=== PATIENT | male | born 1945 | race Caucasian/White ===

== ENCOUNTER 2017-06-18 05:40 | Inpatient (IN) | payer OTHER ==
[~2017-06-18] VITALS: Ht 177.8 cm; Wt 107.6 kg
[2017-06-18 06:53] LABS: ADD MIUA? YES; BILIRUBIN NEGATIVE; BLOOD SMALL; COLOR STRAW ((YELLOW)); GLUCOSE (STRIP) >=500; KETONES NEGATIVE; LEUKOCYTES NEGATIVE; NITRITE NEGATIVE; PROTEIN (STRIP) NEGATIVE; SPECIFIC GRAVITY 1.028 (1.000-1.030); UROBILINOGEN 0.2 MG/DL (0.2-1.0)
[2017-06-18 06:55] LABS: CHLORIDE 92 mEq/L (99-109); SODIUM 127 mEq/L (136-147)
[2017-06-18 06:56] LABS: BACTERIA NONE SEEN /HPF; EPITHELIAL CELLS NONE SEEN /HPF; MUCUS TRACE /LPF; RED BLOOD CELLS 0-5 /HPF (0-5); UCUL ADDED? NO; WHITE BLOOD CELLS 0-5 /HPF (0-5)
[2017-06-18 06:58] LABS: ANION GAP 13 MEQ/L (2-14)
[2017-06-18 06:59] LABS: TOTAL BILIRUBIN 1.3 mg/dL (0.0-1.0)
[2017-06-18 07:00] LABS: ALKALINE PHOSPHATASE 162 IU/L (3-129)
[2017-06-18 07:01] LABS: GFR ESTIMATE (CALCULATED) > 59 mL/min/
[2017-06-18 07:02] LABS: UREA NITROGEN (BUN) 20 mg/dL (9-23)
[2017-06-18 07:08] LABS: GLUCOSE 760 mg/dL (70-99)
[2017-06-18 07:36] LABS: TROP-I INTERPRETATION NEGATIVE; TROPONIN-I < 0.01 ng/mL (0.0-0.30)
[2017-06-18 07:59] LABS: SAMPLE HEMOLYSIS CHECK 0; SAMPLE ICTERIC CHECK 0; SAMPLE LIPEMIA CHECK 0
[2017-06-18 08:06] LABS: CARBON DIOXIDE (BICARBONATE) 29.2 MEQ/L (20-31)
[2017-06-18 10:07] LABS: HDL CHOLESTEROL 42 MG/DL (Desirable>=40); LDL CHOLESTEROL 148 mg/dL (Desirable<100); NON-HDL CHOLESTEROL 182 mg/dL (Desirable<160); TOTAL CHOLESTEROL 224 mg/dL (Desirable<200); TRIGLYCERIDES 170 MG/DL (Normal: <150)
[2017-06-18] MEDS ORDERED: ASPIR 8181 M1 PO (10:29)
[2017-06-18] MEDS ORDERED: FISH OIL 1,0001 EA10 PO (10:30)
[2017-06-18 10:34] LABS: Estimated Average Glucose 326 mg/dL (70-123)
[2017-06-18 14:03] LABS: POINT-OF-CARE METER ID UU13113717
[2017-06-18 14:12] LABS: CHLORIDE 101 mEq/L (99-109); POTASSIUM 4.3 mEq/L (3.7-5.4)
[2017-06-18 14:16] LABS: ANION GAP 10 MEQ/L (2-14)
[2017-06-18 14:18] LABS: GFR ESTIMATE (CALCULATED) > 59 mL/min/
[2017-06-18 14:19] LABS: UREA NITROGEN (BUN) 18 mg/dL (9-23)
[2017-06-18 14:22] LABS: GLUCOSE 472 mg/dL (70-99)
[2017-06-18 14:23] LABS: SODIUM 135 mEq/L (136-147)
[2017-06-18 15:56] VITALS: BP 110/56
[2017-06-18 18:03] LABS: POINT-OF-CARE METER ID UU13113717
[2017-06-18 19:47] VITALS: BP 113/63
[2017-06-18 21:30] LABS: POINT-OF-CARE METER ID UU13113717
[2017-06-18 23:33] VITALS: BP 135/60
[2017-06-19 04:18] VITALS: BP 125/58
[2017-06-19 07:12] LABS: HEMATOCRIT 36.1 % (38.0-50.0); MCH 30.5 PG (29.0-34.0); MCHC 32.4 G/DL (30.0-36.0); MCV 94.3 FL (86-99); MEAN PLAT.VOLUME 13.2 uM^3 (9.0-12.4); PLATELET COUNT 63 K/uL (156-360); RBC DIS.WIDTH-CV 14.3 % (11.8-14.6); RBC DIS.WIDTH-SD 49.8 % (39-53); RED BLOOD COUNT 3.83 M/uL (4.00-5.50); WHITE BLOOD COUNT 5.2 K/uL (4.1-10.2)
[2017-06-19 07:35] LABS: ALKALINE PHOSPHATASE 118 IU/L (3-129); DIRECT BILIRUBIN 0.6 mg/dL (0.0-0.3); TOTAL BILIRUBIN 1.7 MG/DL (0.0-1.0)
[2017-06-19 08:41] VITALS: BP 139/66
[2017-06-19] MEDS ORDERED: PRAVASTATIN SOD40 MG PO (11:23)
[2017-06-19] MEDS ORDERED: LISINOPRIL10 MG PO (11:23)
[2017-06-19] MEDS ORDERED: GLUCOMETER MC (11:28)
[2017-06-19] MEDS ORDERED: 1ST TIER UNILE1 EAC1 MC (11:29)
[2017-06-19] MEDS ORDERED: TEST STRIPS MC (11:29)
[2017-06-19 11:33] VITALS: BP 108/55
[2017-06-19 11:56] LABS: POINT-OF-CARE METER ID UU14188625
[2017-06-19 11:59] LABS: POINT-OF-CARE METER ID UU13113747
[2017-06-19 11:59] LABS: POINT-OF-CARE METER ID UU13113747
[2017-06-19 15:31] VITALS: BP 106/54
[2017-06-19 15:59] LABS: GLUCOSE 422 mg/dL (70-99)
[2017-06-19 17:12] LABS: POINT-OF-CARE METER ID UU14188625
[2017-06-19 18:25] VITALS: BP 100/49
[2017-06-19 21:44] LABS: POINT-OF-CARE METER ID UU13113717
[2017-06-19 23:23] VITALS: BP 117/59
[2017-06-20 03:43] VITALS: BP 95/45
[2017-06-20 07:43] LABS: POINT-OF-CARE METER ID UU13113717
[2017-06-20 07:56] VITALS: BP 127/58
[2017-06-20] MEDS ORDERED: LEVEMIR100 UNIT/2 SC (09:37)
[2017-06-20] MEDS ORDERED: INSULIN SYRING1 EA53 MC (09:44)
[2017-06-20] MEDS ORDERED: NOVOLIN,HU100 UNITS1 SC (09:44)
[2017-06-20] MEDS ORDERED: [UNRECOGNIZED DRUG - SUPPLY] MC (09:44)
[2017-06-20 12:18] VITALS: BP 139/65
[2017-06-20 15:57] VITALS: BP 105/51
== END 2017-06-20 15:57 | disposition home health service (06) | DRG 638 ==
LOC: EME 05:40 → EDOF 08:40 → ENRESERV 08:53 → CANRESERV 12:37 → ENRESERV 12:37 → 5SOUTH 14:18
PROVIDERS: Internal Medicine; Physician Assistant
DX: E11.65 Type 2 diabetes mellitus with hyperglycemia (principal); D69.6 Thrombocytopenia, unspecified; Z68.34 Body mass index [BMI] 34.0-34.9, adult; E87.1 Hypo-osmolality and hyponatremia; I10 Essential (primary) hypertension; E78.5 Hyperlipidemia, unspecified; D64.9 Anemia, unspecified; E66.3 Overweight; Z87.891 Personal history of nicotine dependence; J40 Bronchitis, not specified as acute or chronic; K70.10 Alcoholic hepatitis without ascites
CPT/HCPCS: 70450; 71020; 80048; 80048 91; 80053; 80061; 80076; 81003; 82010; 82803; 82948; 83036; 83930; 84300; 84484; 84999; 85025; 85027; 90686; 93005; 93880; 99281; 99285; G0378; J1815; J7030

== ENCOUNTER 2017-08-15 17:40 | Inpatient (IN) | payer OTHER ==
[~2017-08-15] VITALS: Ht 177.8 cm; Wt 110.0 kg
[~2017-08-15 17:40] MED LIST: 1ST TIER UNILE1 EAC1 MC; ASPIR 8181 M1 PO; FISH OIL 1,0001 EA10 PO; GLUCOMETER MC; INSULIN SYRING1 EA53 MC; LEVEMIR100 UNIT/2 SC; LISINOPRIL10 MG PO; NOVOLIN,HU100 UNITS1 SC; PRAVASTATIN SOD40 MG PO; TEST STRIPS MC; [UNRECOGNIZED DRUG - SUPPLY] MC
[2017-08-15 18:45] LABS: EOSINOPHIL (%) 3.9 % (0-5); EOSINOPHIL COUNT 0.1 K/uL (0-0.3); HEMATOCRIT 30.7 % (38.0-50.0); IMMATURE GRANULOCYTE (%) 0.3 % (0.0-0.7); INSTRUMENT ABS NEUTROPHIL CT 2.2 K/uL; LYMPHOCYTE COUNT 0.7 K/uL (1.0-2.8); MCH 31.3 PG (29.0-34.0); MCHC 32.9 G/DL (30.0-36.0); MEAN PLAT.VOLUME 11.4 uM^3 (9.0-12.4); MONOCYTE (%) 9.3 % (3-12); MONOCYTE COUNT 0.3 K/uL (0-0.8); NEUTROPHIL COUNT 2.2 K/uL (1.8-6.4); PLATELET COUNT 80 K/uL (156-360); RBC DIS.WIDTH-CV 15.2 % (11.8-14.6); RBC DIS.WIDTH-SD 53.1 % (39-53); RED BLOOD COUNT 3.23 M/uL (4.00-5.50); WHITE BLOOD COUNT 3.3 K/uL (4.1-10.2)
[2017-08-15 18:53] LABS: INTER. NORMALIZED RATIO 1.2; PROTHROMBIN TIME 13.8 SEC (10.2-12.9)
[2017-08-15 18:54] LABS: CHLORIDE 110 mEq/L (99-109); SODIUM 139 mEq/L (136-147)
[2017-08-15 18:56] LABS: GLUCOSE 122 mg/dL (70-99)
[2017-08-15 18:57] LABS: ANION GAP 5 MEQ/L (2-14)
[2017-08-15 18:58] LABS: TOTAL BILIRUBIN 0.9 mg/dL (0.0-1.0)
[2017-08-15 19:00] LABS: ALKALINE PHOSPHATASE 120 IU/L (3-129); GFR ESTIMATE (CALCULATED) > 59 mL/min/
[2017-08-15 19:01] LABS: UREA NITROGEN (BUN) 13 mg/dL (9-23)
[2017-08-15 19:02] LABS: DIRECT BILIRUBIN 0.5 mg/dL (0.0-0.3)
[2017-08-15 19:06] LABS: TROP-I INTERPRETATION NEGATIVE; TROPONIN-I < 0.01 ng/mL (0.0-0.30)
[2017-08-15] MEDS ORDERED: ANORO ELLIPTA1 EACH IH (22:45)
[2017-08-15] MEDS ORDERED: LEVEMIR100 UNIT/2 SC (22:47)
[2017-08-16 02:15] VITALS: BP 135/66
[2017-08-16 07:16] LABS: POINT-OF-CARE METER ID UU13113717
[2017-08-16 07:47] VITALS: BP 132/68
[2017-08-16 08:21] LABS: POINT-OF-CARE METER ID UU14188625
[2017-08-16 11:35] VITALS: BP 166/77
[2017-08-16 11:51] LABS: TYPE OF FLUID PERITONEAL
[2017-08-16 11:53] LABS: POINT-OF-CARE METER ID UU13113717
[2017-08-16 12:42] LABS: BODY FLUID RBC'S 2000 /MM^3 (0-100); BODY FLUID WBC'S 391 /MM^3 (0-500)
[2017-08-16 12:46] LABS: BODY FLUID EOSINOPHILS 2 % (0-25); MONONUCLEAR WBC'S 74 %; POLYNUCLEAR WBC'S 24 % (0-25)
[2017-08-16 13:38] LABS: BODY FLUID LDH 63 IU/L; BODY FLUID PROTEIN < 3.0 G/DL
[2017-08-16 16:30] VITALS: BP 126/59
[2017-08-16 16:44] LABS: POINT-OF-CARE METER ID UU14174225
[2017-08-16 19:36] VITALS: BP 118/63
[2017-08-16 20:42] LABS: POINT-OF-CARE METER ID UU14174225
[2017-08-16 23:26] VITALS: BP 135/62
[2017-08-17 04:02] VITALS: BP 114/36
[2017-08-17 05:57] LABS: HEMATOCRIT 30.3 % (38.0-50.0); MCV 93.8 FL (86-99); MEAN PLAT.VOLUME 11.5 uM^3 (9.0-12.4); PLATELET COUNT 78 K/uL (156-360); RBC DIS.WIDTH-SD 52.2 % (39-53); RED BLOOD COUNT 3.23 M/uL (4.00-5.50); WHITE BLOOD COUNT 3.1 K/uL (4.1-10.2)
[2017-08-17 06:30] LABS: ANION GAP 8 MEQ/L (2-14); CHLORIDE 107 MEQ/L (99-109); GFR ESTIMATE (CALCULATED) > 59 mL/min/; GLOBULINS 3.4 G/DL (2.3-3.5); IRON 64 MCG/DL (35-150); POTASSIUM 3.5 MEQ/L (3.7-5.4); SAMPLE HEMOLYSIS CHECK 0; SAMPLE ICTERIC CHECK 0; SAMPLE LIPEMIA CHECK 0; SODIUM 143 MEQ/L (136-147); UREA NITROGEN (BUN) 11 mg/dL (9-23)
[2017-08-17 06:33] LABS: GLUCOSE 62 mg/dL (70-99)
[2017-08-17 07:48] LABS: POINT-OF-CARE METER ID UU13113717
[2017-08-17 07:54] LABS: FERRITIN 24 NG/ML (22-322)
[2017-08-17 07:56] VITALS: BP 111/65
[2017-08-17 10:05] LABS: AHBS INDEX 0; ANTI-HEPATITIS A VIRUS (IGM) Nonreactive; HAV INDEX 0.15; HEPATITIS B SURFACE ANTIBODY Nonreactive
[2017-08-17 10:07] LABS: ANTI-HEPATITIS B CORE (IGM) Nonreactive; HBC IgM INDEX 0.07
[2017-08-17 10:15] LABS: HPCA INDEX 2.45
[2017-08-17 10:50] LABS: POINT-OF-CARE METER ID UU13113717
[2017-08-17] MEDS ORDERED: LASIX20 MG PO (15:11)
[2017-08-17] MEDS ORDERED: ALDACTONE25 MG PO (15:11)
[2017-08-17 16:14] LABS: POINT-OF-CARE METER ID UU14174225
[2017-08-18 13:45] LABS: ALBUMIN 2.65 G/DL (3.6-4.9); ALBUMIN PERCENT 43.4 % (49.3-67.1); ALPHA-1 GLOBULIN 0.29 G/DL (0.15-0.40); ALPHA-1 PERCENT 4.8 % (2.1-5.5); ALPHA-2 GLOBULIN 0.46 G/DL (0.45-0.85); ALPHA-2 PERCENT 7.6 % (6.2-11.6); BETA PERCENT 14.5 % (8.9-15.8); GAMMA PERCENT 29.7 % (8.6-18.6)
[2017-08-18 20:45] LABS: HCV RNA (IU/mL) <15 IU/mL (<15)
[2017-08-19 14:09] LABS: HCV RNA (LOG IU/mL) <1.18 (<1.18)
== END 2017-08-17 16:15 | disposition home or self-care (01) | DRG 433 ==
LOC: EME 17:40 → 5SOUTH 08-16 00:07 → EDOF 08-16 00:07 → ENRESERV 08-16 00:08 → 5SOUTH 08-16 01:46
PROVIDERS: Emergency Medicine; Hospitalist; Nurse Practitioner Adult Health; Radiology Diagnostic Radiology; Specialist
PROC: 0W9G30Z Drainage of Peritoneal Cavity with Drainage Device, Percutaneous Approach (ICD-10-PCS; principal; 2017-08-16)
DX: K70.31 Alcoholic cirrhosis of liver with ascites (principal); D61.818 Other pancytopenia; D63.8 Anemia in other chronic diseases classified elsewhere; E11.22 Type 2 diabetes mellitus with diabetic chronic kidney disease; E11.65 Type 2 diabetes mellitus with hyperglycemia; J44.9 Chronic obstructive pulmonary disease, unspecified; K76.6 Portal hypertension; R16.1 Splenomegaly, not elsewhere classified; E88.09 Other disorders of plasma-protein metabolism, not elsewhere classified; F10.21 Alcohol dependence, in remission; J45.909 Unspecified asthma, uncomplicated; E78.5 Hyperlipidemia, unspecified; I12.9 Hypertensive chronic kidney disease with stage 1 through stage 4 chronic kidney disease, or unspecified chronic kidney disease; N18.9 Chronic kidney disease, unspecified; E66.9 Obesity, unspecified; Z68.34 Body mass index [BMI] 34.0-34.9, adult; Z79.4 Long term (current) use of insulin; Z79.82 Long term (current) use of aspirin; Z86.73 Personal history of transient ischemic attack (TIA), and cerebral infarction without residual deficits; Z87.891 Personal history of nicotine dependence; Z86.010 Personal history of colon polyps; Z87.01 Personal history of pneumonia (recurrent)
CPT/HCPCS: 49083; 71020; 71275; 76705; 78226; 80048; 80076; 82607; 82728; 82746; 82948; 83540; 83615 91; 83880; 83986 90; 84157; 84165; 84466; 84484; 85025; 85027; 85379; 85610; 86705; 86706; 86707 90; 86709; 86803; 87070; 87075; 87205; 87522 90; 88108; 88305; 89051; 93005; 93970; 99281; 99285; A9537; J1644; J1815; J1940; P9047

== ENCOUNTER 2017-10-23 10:48 | Emergency (ER) | payer OTHER ==
[~2017-10-23] VITALS: Ht 180.3 cm; Wt 109.9 kg
[~2017-10-23 10:48] MED LIST changes: +ALDACTONE25 MG PO; +ANORO ELLIPTA1 EACH IH; +LASIX20 MG PO
[2017-10-23 11:46] LABS: HEMOGLOBIN 10.6 G/DL (12.5-16.6); MCH 31.1 PG (29.0-34.0); MCHC 33.1 G/DL (30.0-36.0); MCV 93.8 FL (86-99); PLATELET COUNT 82 K/uL (156-360); RBC DIS.WIDTH-CV 15.2 % (11.8-14.6); RBC DIS.WIDTH-SD 51.8 % (39-53); RED BLOOD COUNT 3.41 M/uL (4.00-5.50); WHITE BLOOD COUNT 4.1 K/uL (4.1-10.2)
[2017-10-23 11:58] LABS: CHLORIDE 106 mEq/L (99-109); POTASSIUM 4.7 mEq/L (3.7-5.4); SODIUM 138 mEq/L (136-147)
[2017-10-23 12:00] LABS: GLUCOSE 121 mg/dL (70-99)
[2017-10-23 12:04] LABS: CREATININE 0.6 mg/dL (0.6-1.3); GFR ESTIMATE (CALCULATED) > 59 mL/min/ (58.99-99999)
[2017-10-23 12:05] LABS: UREA NITROGEN (BUN) 17 mg/dL (9-23)
[2017-10-23] MEDS ORDERED: DOXYCYCLINE MO100 MG PO (14:00)
[2017-10-23 14:08] VITALS: BP 150/72
== END 2017-10-23 14:08 | disposition home or self-care (01) ==
LOC: EME 10:48
DX: J18.9 Pneumonia, unspecified organism (principal); J44.0 Chronic obstructive pulmonary disease with (acute) lower respiratory infection; I48.91 Unspecified atrial fibrillation; E11.9 Type 2 diabetes mellitus without complications; Z79.82 Long term (current) use of aspirin; Z87.891 Personal history of nicotine dependence
CPT/HCPCS: 71046; 80048; 85027; 93005; 99281; 99284

== ENCOUNTER → 2018-03-09 | Outpatient (CLI) | payer OTHER ==
[~2018-03-09] MED LIST changes: +DOXYCYCLINE MO100 MG PO
== END | disposition home or self-care (01) ==
LOC: EKG 08:30
DX: I05.1 Rheumatic mitral insufficiency (principal); I07.1 Rheumatic tricuspid insufficiency; I06.0 Rheumatic aortic stenosis; I51.7 Cardiomegaly; R60.0 Localized edema
CPT/HCPCS: 93306